=== PATIENT | female | born 1970 | race Caucasian/White ===

== ENCOUNTER 2021-05-08 18:42 | Emergency (ER) | payer OTHER, SELFPAY ==
[2021-05-08 18:54] VITALS: BP 154/92; PULSE 94; RESP 16; TEMP 36.2; O2SAT 98
--- NOTE | 2021-05-08 19:25 | ED.DENTAL ---
HPI - Dental/Oral General Chief complaint: Dental/Oral Stated complaint: Tooth Pain Time Seen by Provider: 05/08/21 19:25 Source: patient and RN notes reviewed Mode of arrival: ambulatory Limitations: no limitations History of Present Illness HPI Narrative: 50-year-old female presents with concern for painful dental abscess. Reports history of dental abscesses. Reports she has had to have them drained before. Reports she is planning to get all of her top teeth removed due to frequent abscesses. Reports last one she had was 1 year ago. Reports left upper dental pain, palpable abscess. Reports small amount of foul drainage from the abscess. She denies difficulty swallowing, fever, body aches. MD Complaint: tooth pain Related Data Home Medications Medication Instructions Recorded Confirmed adalimumab [Humira(CF) Pen] See Rx Instructions .ROUTE .COMPLEX 05/08/21 05/08/21 escitalopram oxalate 10 mg PO DAILY 05/08/21 05/08/21 gabapentin 300 mg PO DIRECTED 05/08/21 05/08/21 Allergies Allergy/AdvReac Type Severity Reaction Status Date / Time bacitracin Allergy Unknown Rash Verified 05/08/21 18:50 neomycin Allergy Unknown Rash Verified 05/08/21 18:50 polymyxin B Allergy Unknown Rash Verified 05/08/21 18:50 Review of Systems Review of Systems: CONSTITUTIONAL: Denies malaise, chills, sweats, or fever. ENT: Reports painful left upper dental abscess CARDIOVASCULAR: Denies chest pain, palpitations, or edema. RESPIRATORY: Denies cough or dyspnea. SKIN: Denies rash or itching. MUSCULOSKELETAL: Denies myalgia. NEUROLOGIC: Denies headache. All systems reviewed & are unremarkable except as noted in HPI and below PMFSH Comments At time of signature, agree with nursing past medical, surgical, social and family history. There is no relevant family history pertinent to the presenting complaint Exam Narrative: GENERAL: Well-appearing, well-nourished, and in no acute distress. HEAD: Normocephalic, atraumatic. EYES: PERRLA, conjunctivae clear ENT: Nares clear. Mucous membranes moist. Oropharynx without erythema or lesions. Periapical abscess noted in front of and behind tooth 14, slightly fluctuant NECK: Supple. CHEST: No respiratory distress Speaks in full sentences. HEART: Regular rate and rhythm SKIN: Warm, dry, no visible rash. NEURO: Alert and oriented x3. PSYCH: Normal mood and affect Course Course Emergency Course: Patient is aware of diagnosis, understands and agrees to treatment plan. Anticipatory guidance given. Patient agrees to follow-up as directed and is aware of reasons to seek care at the emergency department. Portions of this record may have been created with voice recognition software Vital Signs Vital signs: Vital Signs Temperature 97.2 F L 05/08/21 18:54 Pulse Rate 94 05/08/21 18:54 Respiratory Rate 16 05/08/21 18:54 Blood Pressure 154/92 H 05/08/21 18:54 Pulse Oximetry 98 05/08/21 18:54 Temperature 97.2 F L 05/08/21 18:54 Pulse Rate 94 05/08/21 18:54 Respiratory Rate 16 05/08/21 18:54 Blood Pressure 154/92 H 05/08/21 18:54 Pulse Oximetry 98 05/08/21 18:54 Reviewed. MDM - Dental/Oral MDM Narrative Medical decision making narrative: Patients pain and complaint coupled with physical findings are consistant with dentalgia. There are no focal signs of space occupying lesions that are compromising to the airway; no dysphagia, odynophagia, dysphonia, or dyspnea. No uvular deviation or soft palate edema. Patient is non-toxic appearing. The floor of the mouth is soft with no signs of Dequan's Angina; no induration below mandible, no neck pain. Patient is without trismus or drooling and able to swallow secretions. Patient is felt appropriate for discharge home with dental follow up. Critical Care Time Critical Care Time Critical Care Time: No Discharge Plan Discharge Clinical Impression: Dental abscess Patient Disposition: Home, Self-Care Condition: Stable
== END 2021-05-08 19:37 | disposition home or self-care (01) ==
PROVIDERS: Emergency Provider Nurse Practitioner; PCP Family Medicine
DX: K04.7 Periapical abscess without sinus (principal); E78.00 Pure hypercholesterolemia, unspecified; I10 Essential (primary) hypertension; K21.9 Gastro-esophageal reflux disease without esophagitis
CPT/HCPCS: 99213; G0463

== ENCOUNTER 2023-12-11 07:00 | Outpatient (NON) | payer BC, SELFPAY | END 2023-12-11 07:01 | disposition home or self-care (01) | PROVIDERS: PCP Family Medicine | DX: K09.0 Developmental odontogenic cysts (principal) | CPT/HCPCS: 88305 ==

== ENCOUNTER 2023-12-11 11:11 | Outpatient (CLI) | payer BC, SELFPAY ==
--- NOTE | ~2023-12-11 | MM_ITS ---
EXAMINATION: MM screening giovany BI w anne HISTORY: Screening mammogram TECHNIQUE: Craniocaudal and mediolateral oblique 3-D tomosynthesis images were obtained and synthetic 2-D images were generated. CAD analysis was submitted and interpreted. COMPARISON: No prior mammogram is available for comparison at this institution. BREAST PARENCHYMAL COMPOSITION: The breasts are almost entirely fatty. FINDINGS: There is no evidence of suspicious mass, calcification, or architectural distortion to sugg est malignancy in either breast. There has been no suspicious interval change. IMPRESSION: 1. No mammographic evidence of malignancy. 2. Recommend routine screening mammography in one year. BI-RADS Category 1: Negative Reviewed, dictated and finalized at location B.
== END 2023-12-11 11:12 ==
PROVIDERS: PCP Family Medicine; Visit Provider Family Medicine
DX: Z12.31 Encounter for screening mammogram for malignant neoplasm of breast (principal)
CPT/HCPCS: 77063; 77067

== ENCOUNTER 2024-05-27 15:44 | Outpatient (CLI) | payer BC, SELFPAY ==
[2024-05-27 16:04] LABS: Hematocrit 41.5 % (37.0-47.0); Hemoglobin 14.3 g/dL (12.0-15.0); Mean Corpuscular HGB Conc 34.5 g/dl (32-36); Mean Corpuscular Hemoglobin 30.4 pg (26-34); Mean Corpuscular Volume 88.1 fl (80-100); Mean Platelet Volume 8.3 fl (7.4-10.4); Platelet Count Result 320 k/mm3 (150-375); Red Blood Count 4.71 M/mm3 (4.2-5.4); Red Cell Distribution Width 13.2 % (11.5-14.5)
[2024-05-27 16:49] LABS: Prothrombin Time 13.5 Seconds (11.1-14.7)
[2024-05-27 16:50] LABS: Fibrinogen 486 mg/dl (215-510); Partial Thromboplastin Time 27.1 Seconds (22.3-36.8)
[2024-06-02 12:53] LABS: Factor VIII Activity 86 % normal (50-180); aPTT 30 sec (23-32); von Willebrand Factor Ag 135 % (50-217)
== END 2024-05-27 15:45 | disposition home or self-care (01) ==
LOC: ANHLAB 15:46
PROVIDERS: PCP Family Medicine; Visit Provider Internal Medicine Hematology & Oncology
DX: R23.3 Spontaneous ecchymoses (principal)
CPT/HCPCS: 36415; 85027; 85240; 85246; 85384; 85610; 85730